=== PATIENT | female | born 1980 | race Caucasian/White ===

== ENCOUNTER 2016-10-15 05:29 | Inpatient (IN) | payer OTHER ==
--- NOTE | 2016-10-14 07:56 | PCM.HPANE ---
Patient Data Surgeon Admitting Provider:Stephanie Greenfield MD Attending Provider:Stephanie Greenfield MD Primary Care Physician:Florecita Other Provider:Rj Chavarria Anesthesia Reason for Visit Term Ht/WT & BMI Body Mass Index Allergies Coded Allergies: Penicillins (Verified Allergy, Unknown, Dizziness, 10/15/16) Past Anesthesia History Anesthesia History: Denies:: Abnormal Airway, Anesthesia Reactions, Difficult Intubation, Fam Anesthesia Reaction, Fam Malignant Hypertherm, Malignant Hyperthermia History History of ENT Problems?: No HEENT History: Denies:: Abnormal Airway Cataracts Difficult Intubation Dysphagia Glaucoma Hearing Problem Sinus Problem TMJ Denture Type: None Teeth Condition: Within Normal Limits Hx of Heart Problems?: No Cardiovascular History: Denies:: AICD Abdominal Aortic Aneurism Atrial Fibrillation Cardiac Surgery Chest Pain Congestive Heart Failure Coronary Artery Disease Edema Heart Murmur Hypertension Irregular Heartbeat Pacemaker Peripheral Vascular Rheumatic Fever Thrombophlebitis Valvular Heart Disease Hx of Respiratory Problem?: No Respiratory History: Denies:: Asthma COPD Chest Surgery Cough Dyspnea Emphysema Hemoptysis Oxygen Administration Pneumonia Pulmonary Embolism Tuberculosis Use of C-PAP Machine Use of Inhalers / NEBS Hx Neurologic Problems?: No Neurological History: Denies:: Alzheimer's Disease CVA Dementia Dizziness Headaches Multiple Sclerosis Parkinson's Disease Peripheral Neuropathy Seizures TIA Hx of GI Problems?: No Gastrointestinal History: Denies:: Cirrhosis Diverticulitis Gall Bladder Disease Gastroesphageal Reflux Gastrointestinal Bleeding Heartburn Hepatitis Hiatal Hernia Liver Disease Rectal Bleeding Hx of Problems?: No Genitourinary History: Denies:: HX of Hemodialysis Kidney Stones Urinary Tract Infection Female Hx: Positive for:: Currently Denies:: Endometriosis Pelvic Inflammatory Problems with Breasts? Skin History: Denies:: History Skin Disorders? Pressure Ulcers Hx Musculoskeletal Problems?: No Musculoskeletal History: Denies:: Back Injury Degenerative Joint Fibromyalgia Joint Replacement Musculoskeletal Trauma Myasthenia Gravis Osteoarthritis Rheumatoid Arthritis Systemic Lupus Hx of Psycho/Social Problems?: No Psycho Social History: Denies:: Anxiety Bipolar Disorder Hx Depression Suicide Attempt Hx Surgeries?: No Hx Any Other Health Problems?: No Hx Diabetes: No Hx Alcohol Use: NoHx Substance Use: NoHave You Smoked inLast 12 mo: No Stop/Bang Risk Assessment Category Category 1A: Patient has history of documented sleep apnea, and HAS NOT received any narcotic, sedative or anesthesia administration during this stay. Category 1B: Patient has history of documented sleep apnea, and HAS received any narcotic , sedative or anesthesia administration during this stay Category 2: Patient has SUSPECTED Obstructive Sleep Apnea, and HAS received any narcotic , sedative or anesthesia administration during this stay. Category 3: Patient has SUSPECTED Obstructive Sleep Apnea and HAS NOT received narcotic, sedative or anesthesia administration during this stay. Category 4: Outpatient in Procedural Areas with known sleep apnea or who screen positive for High Risk via the STOP/BANG questionnaire. Exam Exam General Appearance: Alert, Oriented X3, Cooperative, No Acute Distress HEENT/AIRWAY: MP 2 Lungs: Clear to Auscultation Heart: Exam Unremarkable Plan Impression Patient chart reviewed, patient interviewed and anesthestic plan with risks, benefits, and alternatives discussed, and informed consent obtained. ASA Physical Status: ASA2 Mod Systemic Disease Anesthetic Plan: SAB Bene/Risks/Altern/Consents: Yes HP Complete Prior to Induction: Yes Greg Lennon MD Oct 14, 2016 07:56
[~2016-10-15] VITALS: Ht 175.3 cm; Wt 95.3 kg
[~2016-10-15 05:29] MED LIST: Carboprost 250 mCg/mL Inj IM PRN; CeFAZolin Inj 2 GM in Dextrose 5% 50 ML IV ONE; Hemorrhage Kit, Post Partum XX ONE; Lactated Ringer's 1,000 ML IV SCH; Methylergonovine 0.2 mg/mL Inj IM PRN; Oxytocin 10 Unit/mL Inj IM PRN; Sodium Citrate-Citric Acid 15 mL Solution PO SCH
[2016-10-15] MEDS ORDERED: CeFAZolin Inj 2 GM in IV Premix 1 EACH IV ONE (05:33)
[2016-10-15 06:38] LABS: Mean Corpuscular Hemoglobin 31.5 pg (27.0-35.0); Mean Corpuscular Volume 92.7 fL (81-100)
--- NOTE | 2016-10-15 07:05 | PCM.HPOB ---
Subjective Referring Provider: Admitting Physician: Stephanie Greenfield MD Primary Care Physician: Nopcp Attending Physician: Stephanie Greenfield MD Chief Complaint "scheduled for a " History of Present History of Present Illness Ms. Lopez is a 35 year old woman at 39 weeks 0 days gestation with an PADMINI of 10/22/2016 based on 13 week ultrasound who presents to the [facility] for a repeat section with bilateral tubal ligation. She does not have any contractions, leakage of fluid, or bleeding. She has no concerns today. Past Medical History Obstetrical History: History of 1 spontaneous History of 1 previous section This she had depression in treated with sertraline, transferred from [facility] at 27 weeks, and planned delivery with tubal ligation Gynecologic History: Menarche at age [age] years old Medical History: Depression in Seasonal allergies Surgical History: Previous section Right wrist ganglion cyst removal Smoking Status: Former Smoker (quit at 12 weeks gestation) Hx Alcohol Use: No Hx Substance Use: No Past Family History Family History Maternal grandmother hypertension Lung cancer on both maternal and paternal sides Review of Systems Eyes: Denies: Blurred Vision, Double Vision Cardiovascular: Denies: Chest Pain Respiratory: Denies: Cough Gastrointestinal: Denies: Epigastric pain, Nausea, Vomiting Genitourinary: Denies: Dysuria Neurological: Denies: Dizziness Endocrine: Denies: Change in Appitite Medications Home medications vitamin Sertraline 50 mg once daily Omeprazole 40 mg once daily Allergy Coded Allergies: Penicillins (Verified Allergy, Unknown, Dizziness, 10/15/16) Exam Vital Signs BP 111/74, HR 73 bpm Exam FHR baseline 140s with variability and accelerations Constitutional: Well-developed, Well-nourished HEENT: Atraumatic, EOMI, Scleral Anicteric Lungs: Clear to Auscultation, Normal Air Movement Heart: Regular Rate/Rhythm, Normal S1, Normal S2, No Murmurs/Rubs/Gallops Abdomen: Gravid, No tenderness Extremities: Pulses Palpable x4, Edema (mild bilateral lower extremity) Neurological/Psychiatric: Alert, Oriented X3, Cooperative, No Acute Distress Neuro: Grossly Neurologically Intact, Cranial Nerves 3-12 nl, Normal Speech Labs/Diagnostics Labs Item Value Date Time White Blood Count 10.4 th/mm3 H 10/15/16614 Hemoglobin 13.3 g/dL 10/15/16614 Hematocrit 39.1 % 10/15/16614 Platelet Count 179 marielena/L 10/15/16 06 Maternal Blood Type: O (positive) Antibody Screen: negative Group B Strep Results: Negative Rubella: Immune Additional Information labs: blood type O positive, antibody negative, Pap smear negative, varicella immune, rubella immune, RPR nonreactive, HBsAg negative, HIV negative , hepatitis C negative, gonorrhea and chlamydia negative, GBS negative OB Intrapartum Assessment/Plan Assessment 35 year old woman at 39 weeks 0 days gestation with an PADMINI of 10/22/2016 based on 13 week ultrasound Sterilization desired Depression in Intrapartum plan 35 year old woman at 39 weeks 0 days gestation with an PADMINI of 10/22/2016 based on 13 week ultrasound - Repeat section planned for today Sterilization desired - Bilateral tubal ligation planned for today Depression in - Continue sertraline 50 mg once daily Elena Talley DO Oct 15, 2016 07:05
[2016-10-15] MEDS ORDERED: Atropine 0.4 mg/mL Inj IV PRN (07:20)
[2016-10-15] MEDS ORDERED: fentaNYL-PF 50 mCg/mL 2 mL Inj IVPUSH PRN (07:20)
[2016-10-15] MEDS ORDERED: EPHEDrine Sulfate 50 mg/mL Inj IVPUSH PRN (07:20)
[2016-10-15] MEDS ORDERED: SERT20OR6 PO (07:21)
[2016-10-15] MEDS ORDERED: OMEP40CA36 PO (07:21)
[2016-10-15] MEDS ORDERED: PNV91TAB6 PO (07:21)
[2016-10-15] MEDS ORDERED: Morphine PF 1 mg/mL 10 mL Inj EPIDURAL ONE (07:45)
[2016-10-15] MEDS ORDERED: Morphine PF 1 mg/mL 10 mL Inj ONE (08:47)
[2016-10-15] MEDS ORDERED: Oxytocin 10 Unit/mL Inj ONE (08:47)
[2016-10-15] MEDS ORDERED: Bupivacaine-MPF 0.75% 30 mL Inj ONE (08:47)
[2016-10-15] MEDS ORDERED: EPHEDrine/NS 5 mg/mL 5 mL Syringe ONE (08:47)
[2016-10-15] MEDS ORDERED: HYDROcodone-APAP 5-325 mg Tablet PO PRN (08:50)
[2016-10-15] MEDS ORDERED: hydrOXYzine Pamoate 25 mg Capsule PO PRN (08:50)
[2016-10-15] MEDS ORDERED: Acetaminophen IV 1,000 MG in IV Premix 1 EACH IV PRN (08:50)
[2016-10-15] MEDS ORDERED: Carboprost 250 mCg/mL Inj IM PRN (08:50)
[2016-10-15] MEDS ORDERED: Oxytocin 30 Units/500 mL LR 30 UNITS in IV Premix 1 EACH IV PRN (08:50)
[2016-10-15] MEDS ORDERED: Oxytocin 10 Unit/mL Inj IM PRN (08:50)
[2016-10-15] MEDS ORDERED: Hemorrhage Kit, Post Partum XX ONE (08:50)
[2016-10-15] MEDS ORDERED: LANOlin HPA 7 Gm Ointment TOPICAL PRN (08:50)
[2016-10-15] MEDS ORDERED: Methylergonovine 0.2 mg/mL Inj IM PRN (08:50)
[2016-10-15] MEDS ORDERED: Sodium Chloride LOK Flush 10 mL Syringe IVFLUSH PRN (08:50)
--- NOTE | 2016-10-15 08:55 | PCM.ANEP1 ---
Post Anesthesia PACU Phase 1 Assessment Anesthetic Administered: SAB Level of Alertness: Awake, talking ANNE's with Equal Strength: No Pain: No Nausea or Vomiting: Yes CV Function & Hydration Stable: Yes Airway Device: Oxygen Delivery: Room Air Lungs: Normal Air Movement Dermatome Level: T10 (Umbilicus) PACU Phase 2 Assessment Complications: No Follow up Care: No Patient Instructions Provided: N/A Greg Lennon MD Oct 15, 2016 08:54
--- NOTE | 2016-10-15 10:02 | OP ---
[address] [address] OPERATIVE REPORT PATIENT: MONTSERRAT GARCÍA : 1980 MR#: [id number] ADMIT: 10/15/2016 JOB ID: [id number] DATE OF SURGERY: 10/15/2016 SURGEON: Olive Enriquez MD PREOPERATIVE DIAGNOSIS(ES): POSTOPERATIVE DIAGNOSIS(ES): INDICATION FOR SURGERY: This is a 35-year-old female. She is para 2 now. She presented to the [facility] this morning for scheduled repeat section with bilateral tubal ligation. She had one previous section, but strongly desired repeat section and BTL. Discussed with the patient about the benefits, risks, alternatives of repeat section. She understood there is risk of infection; bleeding; injury to the organs around the uterus, including, but not limited to the bladder, ureters, major vessels, nerves. She understood the risk of excessive blood loss may need a blood transfusion. Informed consent signed. The patient also strongly desired for permanent sterilization with bilateral tubal ligation. She understood this is a permanent procedure, and difficult to reverse. On the other hand, she also understood that no control method is 100% guaranteed. Informed consent also signed for BTL. DESCRIPTION OF PROCEDURE: The patient was transferred to the operating room. Ancef 2 g was given before the procedure. After anesthesia was noted to be adequate, she was placed in dorsal supine position with a leftward tilt. She was prepared and draped in normal sterile fashion. A Pfannenstiel incision was placed by scalpel through the previous scar, and this incision was carried through to the underlying fascia. A transverse incision was placed on fascia with a scalpel, and this incision was carried bilaterally with Vergara scissors. At this time, the superior aspect of the incision was grasped by a straight Bushra and tented up. The underlying rectus muscle was dissected off. Then the inferior aspect of the incision was grasped by a straight Bushra and tented up. The underlying rectus muscle dissected off. Then the rectus muscle was in the midline, and the underlying peritoneum entered bluntly. This incision was extended both bluntly and sharply. The lower blade inserted to expose the lower segment of the uterus. The vesicouterine peritoneum identified and entered sharply with Metzenbaum scissors. The bladder flap was created both digitally and sharply. A transverse incision was placed on the lower segment of the uterus, and this incision was extended bilaterally by bandage scissors. At this time, all instruments were cleared from the field. The infant was delivered at MULUGETA position with no difficulty. Shoulders and chest delivered without difficulty. After baby delivered, it was noted the baby had a good tone and spontaneous crying. The baby was dried, and delayed cord clamp performed after one 1 minute. The infant handed to the waiting rail car maintenance mechanic. Regular cord blood collected. The placenta did deliver spontaneously completely, and examined with three-vessel cord. At this time, all the debris and blood clots cleared from the field. The uterine incision was closed by 0 Vicryl continuously with locked fashion. A couple of [id number] stitches were placed for hemostasis. At this time, the attention was transferred to the tubal ligation. A segment of the left fallopian tube was grasped by Navya, and a loop of fallopian tube, about 3 cm, was tied twice with 0 plain suture, and the segment of the tube was removed. The same procedure was performed on the other side of the fallopian tube. Hemostasis confirmed. The uterus returned back to the pelvic cavity. The uterine incision was re-examined, confirmed hemostasis. A small hematoma was noticed on the top of the bladder, about 3-4 cm. After observation, there was no change of size, no active bleeding. The decision made was not to open this hematoma. Then the fascia was reapproximated with 0 Vicryl continuously. The subcutaneous tissue was reapproximated with 2-0 plain sutures intermittently. The skin was closed by 4-0 Monocryl continuously subcutaneously, with 4-0 Monocryl on the Douglas needle. The patient tolerated the procedure well. All instrument, needles, laps, and gauzes counted correct twice. EBL during the procedure was 500 cc. Urine output 200 cc. The score of the infant was 9 and 9. Weight was not available at dictation.
[2016-10-15] MEDS: Lactated Ringer's 1,000 ML IV SCH (19:00)
[2016-10-15] MEDS: oxyCODONE-Acetamin 5-325 mg Tablet PO PRN (19:51)
[2016-10-16] MEDS: oxyCODONE-Acetamin 5-325 mg Tablet PO PRN ×7 (00:29→23:33)
[2016-10-16] MEDS: Lactated Ringer's 1,000 ML IV SCH ×3 (00:47→16:47)
--- NOTE | 2016-10-16 09:07 | PCM.PNOBPP ---
Subjective Date of Service Oct 16, 2016 Visit History Ms. Lopez is a 35 year old now P2 woman at 39 weeks 0 days gestation with an PADMINI of 10/22/2016 based on 13 week ultrasound who is status post repeat section with bilateral tubal ligation on 10/15/2016. Subjective She feels tired this morning. She has pain at the incision which improves with Percocet and ibuprofen. She is eating and drinking well. She does not have nausea or vomiting. She is urinating without issue. She has not had a bowel movement and is not passing gas yet. Lochia: Light Pain Management: PO pain meds Gastrointestinal: Good Appetite, No N/V Postop Activity: Ambulating Independently Labs blood type O positive, antibody negative, Pap smear negative, varicella immune, rubella immune, RPR nonreactive, HBsAg negative, HIV negative, hepatitis C negative, gonorrhea and chlamydia negative, GBS negative Group B Strep Results: Negative Rubella: Immune Blood Type: O (positive) Labs Laboratory Tests 10/16/16 06:49: Exam Vital Signs Vital Signs: VS reviewed, stable Exam : Voiding without difficulty Extremities: No cords, Normal pulses, No tenderness/swelling Lungs: Clear to Auscultation, Normal Air Movement Heart: Exam Unremarkable, Regular Rate/Rhythm, Normal S1, Normal S2, No Murmurs /Rubs/Gallops General: Alert, Oriented X3, Cooperative, No Acute Distress Surgical Wound : Dressing & Drainage Status: Dry & Intact OB Post Assessment/Plan Assessment 35 year old now P2 woman at 39 weeks 0 days gestation with an PADMINI of 2016 based on 13 week ultrasound Sterilization desired Depression in Post plan: Continue routine post care Plan: 35 year old now P2 woman at 39 weeks 0 days gestation with an PADMINI of 2016 based on 13 week ultrasound - Status post repeat section on 10/15/16 at 08:04 with male weighing 3147 g and Apgars 9 and 9 - Continue pain management - Anticipate discharge home tomorrow Sterilization desired - Status post bilateral tubal ligation Depression in - Continue sertraline 50 mg once daily Attending Statement The patient was seen and examined together with Dr. Elena Talley DO on 2016 and I agree with the history, exam and plan as outlined in the note above. Elena Talley DO Oct 16, 2016 09:07 Adebayo Mistry MD Oct 22, 2016 17:01
[2016-10-16 11:21] LABS: Mean Corpuscular Hemoglobin 32.1 pg (27.0-35.0)
--- NOTE | 2016-10-16 17:07 | PATH ---
SURGICAL PATHOLOGY Attending Physician:Olive Enriquez MD CASE STATUS: Signed Out PATIENT NAME: MONTSERRAT GARCÍA PID: [id number] : 1980 DATE COLLECTED:10/15/2016 16:46 SPECIMEN: 1: Fallopian Tube, Biopsy 2: Fallopian Tube, Biopsy CLINICAL HISTORY: 1). RIGHT FALLOPIAN TUBE 2). LEFT FALLOPIAN TUBE FINAL DIAGNOSIS: 1. Fallopian Tube, Right, Tubal Ligation: Complete cross-section of segment of fallopian tube x1. 2. Fallopian Tube, Left, Tubal Ligation: Complete cross-section of segment of fallopian tube x1. ICD10: Z30.2 GROSS DESCRIPTION: The specimens are received in unfixed, labeled with the patient's name, and sublabeled as the following: (1) right fallopian tube; (2) left fallopian tube. (1) The specimen consists of a non-fimbriated segment of fallopian tube (length-2.3 cm, diameter-0.4 cm). The serosa is abernathy-pink smooth and shiny. The lumen is abernathy and unremarkable. No nodules, masses or lesions are identified. 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 (2) The specimen consists of a non-fimbriated segment of fallopian tube (length - 1.7 cm, diameter-0.5 cm). The serosa is abernathy-pink smooth and shiny. The lumen is abernathy and unremarkable. No nodules, masses or lesions are identified. Section code: (2A) fallopian tube, serially sectioned, aircraft sales representative. 10/15/16 ICD-9 CODES: CPT CODES: 1: 75784 2: 78954 Electronically Signed Out Luisa Rider MD [facility], [place] [address] Technical component performed at [facility], [address] [place] [address] Ave[address], [place], [address]
[2016-10-17] MEDS: Lactated Ringer's 1,000 ML IV SCH (00:47)
[2016-10-17] MEDS: oxyCODONE-Acetamin 5-325 mg Tablet PO PRN ×3 (03:39→08:08)
[2016-10-17] MEDS ORDERED: IBUP800T28 PO (06:26)
[2016-10-17] MEDS ORDERED: DOCU-41 PO (06:26)
[2016-10-17] MEDS ORDERED: OXYC1TAB24 PO (06:26)
--- NOTE | 2016-10-17 06:57 | PCM.DIOB ---
Obstetrical Disch Instruction Dates of Hospitalization Date of Hospital Admission Oct 15, 2016 at 05:29 Providers Admitting Physician: Stephanie Greenfield MD Primary Care Physician: Florecita Attending Physician: Stephanie Greenfield MD Discharge Diagnosis Discharge Diagnosis You had a and bilateral tubal ligation. Problems: Diet Discharge Diet: No restrictions Activity Discharge Activity-General: Pelvic Rest for 6 weeks, Balance rest and activity , Activity as pain allows, Activity as energy allows, No lifting >10 pounds for 4-6 weeks Dressing and Incisional Care Dressing Care: Allow Steri Stripes to fall off Hygiene: May shower, Wash incision with soap & water, DO NOT soak incision under water, NO bathtub, hot tub or whirlpool Additional Instructions Discharge Instructions Continue your vitamin. Please take the iron and vitamin c together for your anemia. Do not take more pain medication (Percocet) than is necessary -- less is better. Percocet pills have Tylenol (acetaminophen) in them at 325mg per pill. Do not take Tylenol in addition to your pain medication but should take one or the other. Do not take while driving or working. Both iron and Percocet can give you constipation so you have also been given a prescription for docusate to keep you regular. Be sure to follow up in 2 weeks and then again in 6 weeks at [facility]. Pelvic rest for 6 weeks (nothing per vagina including intercourse, tampons) If you have a fever greater than 100.4, please call [facility]. There is always someone friction welding machine operator to talk to. If you have an increase in bleeding, call [facility]. If you have a lot of bleeding suddenly, especially if you have symptoms of dizziness & weakness with it, get emergency help. If you start experiencing extreme depression, especially if you feel that you are a danger to yourself or your family, seek emergency help. You have been through a lot -- BE SURE TO TAKE CARE OF YOURSELF. You have been sent home with the following prescriptions: - Percocet 5/325 mg, take 1 tab every 4-6 hours as needed for pain. - Colace 100 mg twice a day as needed for constipation. - Ferrous sulfate 325 mg every day. - Vitamin C 500 mg every day. Take with iron. - Ibuprofen 800mg take 1 tab every 8 hours as needed for pain. Take with a meal. Follow-up in 2 and 6 weeks with [facility]. Follow Up Plan Follow-up Provider (F9): Olive Enriquez MD Follow-up appointment: Weeks (2 and 6) Call your provider for: Fever or Chills, Shortness of breath, Heavy vaginal bleeding, Heavy bleeding, Epigastric pain, Excessive constipation, Vaginal discomfort, Red painful breasts, Other (painful swelling in your legs) Elena Talley DO Oct 17, 2016 06:57
[2016-10-17] MEDS ORDERED: ASCO-294 PO (07:25)
[2016-10-17] MEDS ORDERED: FERR-83 PO (07:25)
[2016-10-17 08:23] VITALS: BP 103/65; PULSE 69; RESP 18
--- NOTE | 2016-10-17 13:36 | PCM.DC.OB ---
Obstetrical Discharge Summary Date of Service Oct 17, 2016 Date of hospital admission Oct 15, 2016 at 05:29 Date of Discharge: Oct 17, 2016 Providers Admitting Physician: Stephanie Greenfield MD Primary Care Physician: Nopcp Attending Physician: Stephanie Greenfield MD Diagnosis at Time of Discharge 35 year old now P2 woman at 39 weeks 0 days gestation with an PADMINI of 2016 based on 13 week ultrasound Sterilization desired Depression in Problems: Brief History and Physical: From the history and physical performed by Dr. Talley on 10/15/2016: Ms. Lopez is a 35 year old woman at 39 weeks 0 days gestation with an PADMINI of 10/22/2016 based on 13 week ultrasound who presents to the [facility] for a repeat section with bilateral tubal ligation. She does not have any contractions, leakage of fluid, or bleeding. She has no concerns today. Hospital Course: 35 year old now P2 woman at 39 weeks 0 days gestation with an PADMINI of 2016 based on 13 week ultrasound - Status post repeat section on 10/15/16 at 08:04 with male weighing 3147 g and Apgars 9 and 9 - On post /post operative day 2, her pain was well controlled on oral pain medications. She did not have headache, blurred vision, dizziness, chest pain, nausea, vomiting, or dysuria. She was passing flatus. On exam, her vital signs were stable. She was awake, alert, and oriented, no acute distress, heart was a regular rate and rhythm, lungs were clear to auscultation bilaterally, uterus was firm and incision site was clean, dry, and intact without surrounding erythema, edema, or warmth, and bilateral lower extremities were without edema or tenderness. Sterilization desired - Status post bilateral tubal ligation on 10/15/16 Depression in - Continued sertraline 50 mg once daily Ascorbate Calcium (Vitamin C) 500 Mg Tablet 500 MG PO DAILY Prescribed by: CARLA TALLEY DO Docusate Sodium (Colace) 100 Mg Capsule 100 MG PO BID PRN PRN For Constipation Prescribed by: CARLA TALLEY DO Ferrous Sulfate (Ferrous Sulfate) 325 Mg Tablet 325 MG PO DAILY Prescribed by: CARLA TALLEY DO Ibuprofen (Ibuprofen) 800 Mg Tablet 800 MG PO TID PRN PRN For Pain Prescribed by: CARLA TALLEY DO Omeprazole (Omeprazole) 40 Mg Capsule.dr 40 MG PO DAILY (Reported) Last Taken: Unknown Dose on 10/14/16 Pnv95/Ferrous Fumarate/FA ( Vitamin Tablet) 28 Mg Iron-800 Mcg Tablet 1 EACH PO DAILY (Reported) Sertraline HCl (Sertraline) 20 Mg/1 Ml Oral.conc 50 MG PO DAILY (Reported) Last Taken: Unknown Dose on 10/14/16 oxyCODONE-Acetaminophen 5-325 mg ( oxyCODONE-Acetaminophen 5-325 mg) 1 Each Tablet 1 TAB PO Q6H PRN PRN For Pain Prescribed by: DO Mayank STONE Marissa L DO Oct 17, 2016 13:36
== END 2016-10-17 10:38 | disposition home or self-care (01) | DRG 766 ==
LOC: FBC 05:29 → EDSTATUS 07:15 → EDUNIT# 07:15
PROVIDERS: ADMIT Obstetrics & Gynecology; ATTEND Legal Medicine
PROC: 0UB70ZZ Excision of Bilateral Fallopian Tubes, Open Approach (ICD-10-PCS; 2016-10-15)
PROC: 10D00Z1 Extraction of Products of Conception, Low, Open Approach (ICD-10-PCS; principal; 2016-10-15 07:15)
DX: O34.211 Maternal care for low transverse scar from previous cesarean delivery (principal); Z30.2 Encounter for sterilization; O99.344 Other mental disorders complicating childbirth; F32.9 Major depressive disorder, single episode, unspecified; Z3A.39 39 weeks gestation of pregnancy; Z37.0 Single live birth